=== PATIENT | male | born 1990 | race Two or more races ===

== ENCOUNTER 2023-10-03 19:25 | Emergency (ER) | payer OTHER ==
[~2023-10-03] VITALS: Ht 170.2 cm; Wt 71.7 kg
[2023-10-03] MEDS ORDERED: PSEU120T83 PO (21:56)
[2023-10-03] MEDS ORDERED: FLUT16SP16 BNOSTRILS (21:56)
[2023-10-03 22:19] VITALS: BP 123/82; TEMP 98; O2SAT 97
== END 2023-10-03 22:19 | disposition home or self-care (01) ==
LOC: ER 19:33
DX: J32.9 Chronic sinusitis, unspecified (principal); Z79.899 Other long term (current) drug therapy
CPT/HCPCS: 70450-TC